=== PATIENT | female | born 1955 | race Caucasian/White ===

== ENCOUNTER 2016-10-11 14:57 | Emergency (ER) | payer BC ==
--- NOTE | ~2016-10-11 | ER ---
PATIENT'S NAME: KIKO BROWN [facility] AGE: 61 Y [address] ROOM: [place] [address] LOCATION: ED ADMIT DATE: 10/11/2016 ER/Outpatient Report DISCHARGE DATE: 10/11/2016 FAMILY PHYSICIAN: Venkat Fox MD ATTENDING PHYSICIAN: Hal Desir Time of Arrival: 1457 hours. Time of Evaluation: 1501 hours. CHIEF COMPLAINT: Slow heart rate. HISTORY OF PRESENT ILLNESS: The patient is a 61-year-old female, presents to the emergency department today with a chief complaint of slow heart rate. She reports she is having weeks of episodes of sharp chest pain, the pinching type pain in the center of her chest. She does report she has an appointment with Dr. Florez next week. She checked her heart rate today and it was in the 40s. She became concerned and contacted her primary provider, who instructed her to come to the emergency department to be checked out. The chest pains have been going on for about 2 months. She denies any nausea or vomiting. No diaphoresis. Does have some shortness of breath with ambulation. Denies any pain, currently is 0/10 in severity. PAST MEDICAL HISTORY: Cellulitis in lower extremities, depression, ovarian cancer, hypothyroidism, palpitations, migraines, and psoriasis. PAST SURGICAL HISTORY: Anal fissure, breast biopsy, colonoscopy, EGD, exploratory laparotomy, radial neck dissection, tonsillectomy, and hysterectomy. SOCIAL HISTORY: The patient denies any tobacco, alcohol, or illicit drug use. ALLERGIES: BETADINE, NEOSPORIN, EPINEPHRINE, LIDOCAINE, TAPES, ADHESIVES, ZOFRAN, ANESTHETIC, TOBREX, ALOE, DEXON SUTURE, LANOLIN, AND SULFA. MEDICATIONS: Please see list. PRIMARY CARE DOCTOR: Israel Lawrence MD. PATIENT'S NAME: KIKO BROWN [facility] AGE: 61 Y [address] ROOM: [place] [address] LOCATION: ED ADMIT DATE: 10/11/2016 ER/Outpatient Report DISCHARGE DATE: 10/11/2016 FAMILY PHYSICIAN: Venkat Fox MD ATTENDING PHYSICIAN: Hal Desir REVIEW OF SYSTEMS: All systems are reviewed by myself and are negative with the exception of those discussed in HPI and past medical history. PHYSICAL EXAMINATION: VITAL SIGNS: Weight 121.6 kilos, blood pressure 171/74, pulse 66, respiratory rate 18, temperature 97.7, oxygen saturation 95% on room air. GENERAL: The patient is a 61-year-old female who appears stated age, obviously in no acute distress. HEENT: Normocephalic and atraumatic. Pupils are equal, round, and reactive to light and accommodation. Extraocular motions are intact. Nares are patent bilaterally. TMs are clear. Oropharynx is clear. NECK: Supple. There is no nuchal rigidity. CARDIOVASCULAR: Bradycardic. No murmurs, rubs, or gallops. LUNGS: Clear to auscultation bilaterally. No wheezes, rales, or rhonchi. ABDOMEN: Soft, nontender, and nondistended. No rebound, rigidity, or guarding. MUSCULOSKELETAL: The patient moves all 4 extremities. 5/5 muscle strength. SKIN: Warm and dry. There are no rashes or lesions noted. LABS AND X-RAYS: EKG is obtained and it is interpreted by myself at 1542 hours and shows sinus bradycardia with a rate of 56, normal axis, normal interval. No ST elevation, ST depression, or T-wave inversions. CBC is normal. Coags are normal. CMP is unremarkable. LFTs are normal. Cardiac enzymes are normal. D-dimer is normal. Two-view chest x-ray is obtained and it is interpreted by myself and shows no acute cardiopulmonary process. ProBNP is normal. Repeat 2-hour EKG shows sinus bradycardia with a rate of 49, normal axis, normal interval, no ST elevation, ST depression, or T-wave inversions. The 2-hour cardiac enzymes are normal. IMPRESSION: 1. Bradycardia. 2. Atypical chest pain. 3. Initial visit. EMERGENCY DEPARTMENT COURSE: The patient brought back to the examination room. Seen and evaluated by myself. An IV is established. Laboratory analysis and imaging are obtained as described above. The patient has minimal symptoms at this time. We did give the patient 4 baby aspirin. The results are obtained. I have discussed the results with the patient. I did recommend 2-hour cardiac enzymes, and the patient and her are agreeable. The 2-hour enzymes are normal. The patient is without chest pain at this time. She does have an excellent overall clinical appearance. I have recommended close followup with Dr. PATIENT'S NAME: KIKO [facility]OWN [facility] AGE: 61 Y [address] ROOM: [place], [place] [address] LOCATION: [facility] ADMIT DATE: 10/11/2016 ER/Outpatient Report DISCHARGE DATE: 10/11/2016 FAMILY PHYSICIAN: Venkat oFx MD ATTENDING PHYSICIAN: Hal Desir. She has an appointment for next week. I have recommended rest. Per the patient's primary care note, if the ER workup was negative, they did recommend decreasing her nadolol to one-half tab daily. I have also agreed with this recommendation. Discharge instructions are discussed. I have discussed [id number] instructions including worsening symptoms or any other concerns to return to the emergency department sooner. The patient is agreeable and is agreeable and they are without further questions at this time. DISPOSITION: The patient discharged to home in good condition. DO ROSEMARY FRITZ/modl /[id number] d: 10/12/16825 t: 10/12/161651, OUTPATIENT REPORT
[2016-10-11 15:52] LABS: PROTIME 10.6 SECONDS (9.6-11.1); PTT 28 SECONDS (25-32)
[2016-10-11 16:00] LABS: ALBUMIN 3.4 gm/dL (3.5-5.0); ALK PHOS 78 IU/L (33-138); ALT 25 IU/L (12-78); ANION GAP 14.6 (10.0-19.0); AST 18 IU/L (10-40); BLOOD UREA NITROGEN 14 mg/dL (6-24); CALCIUM 8.4 mg/dL (8.5-10.5); CHLORIDE 107 mMol/L (96-110); CO2 27 mMol/L (22-32); CPK 58 IU/L (21-215); CREATININE 0.8 mg/dL (0.5-1.1); ESTIMATED GFR (MDRD EQUATION) > 60; MAGNESIUM 2.1 mg/dL (1.3-2.6); POTASSIUM 3.6 mMol/L (3.7-5.1); SODIUM 145 mMol/L (135-145); TOTAL BILIRUBIN 0.5 mg/dL (0.0-1.5); TOTAL PROTEIN 7.1 g/dL (6.0-8.4)
[2016-10-11 16:27] LABS: BASOPHIL % 0.6 %; EOSINOPHIL # 0.2 K/uL (0.0-0.5); EOSINOPHIL % 2.4 %; HEMATOCRIT 43.2 % (33.0-46.0); HEMOGLOBIN 13.8 g/dL (10.0-15.0); IMMATURE GRANULOCYTE % 0.3 %; LYMPHOCYTE # 2.5 K/uL (0.8-4.0); LYMPHOCYTE % 37.6 %; MCH 29.4 pg (27.0-34.0); MCHC 31.9 gm/dL (32.0-36.5); MCV 92.1 fl (83.0-98.0); MONOCYTE # 0.5 K/uL (0.0-1.0); MONOCYTE % 7.9 %; MPV 9.9 fl (9.4-12.4); NEUTROPHIL # (ANC) 3.5 K/uL (1.8-7.8); NEUTROPHIL % 51.2 %; NRBC % 0 /100WBC (0-0.00); PLATELET COUNT 234 K/uL (150-450); RBC 4.69 M/uL (3.50-5.50); RDW-CV 13.6 % (11.9-14.6); WBC 6.8 K/uL (4.0-11.0)
[2016-10-11 18:11] LABS: CPK 79 IU/L (21-215)
== END 2016-10-11 19:02 | disposition disaster alternative care site (69) ==
LOC: GMED 14:57
PROVIDERS: Emergency Medicine
DX: R00.1 Bradycardia, unspecified (principal); R07.89 Other chest pain; F32.9 Major depressive disorder, single episode, unspecified; E03.9 Hypothyroidism, unspecified; Z85.43 Personal history of malignant neoplasm of ovary; Z90.89 Acquired absence of other organs; Z98.890 Other specified postprocedural states; Z88.1 Allergy status to other antibiotic agents; Z91.048 Other nonmedicinal substance allergy status; Z88.8 Allergy status to other drugs, medicaments and biological substances; Z88.4 Allergy status to anesthetic agent; Z88.2 Allergy status to sulfonamides

== ENCOUNTER → 2017-02-08 | Outpatient (CLI) | payer BC | END | disposition disaster alternative care site (69) | LOC: GBCOE 09:06 | DX: Z12.31 Encounter for screening mammogram for malignant neoplasm of breast (principal); Z91.89 Other specified personal risk factors, not elsewhere classified | CPT/HCPCS: G0202 ==